=== PATIENT | female | born 1995 | race Asian ===

== ENCOUNTER 2018-01-16 14:25 | Emergency (ER) | payer OTHER ==
[2018-01-16 14:36] VITALS: RESP 16; O2SAT 97
--- NOTE | 2018-01-16 15:02 | EDPHY ---
H & P Stated Complaint: increasing cameron over last month has appt with neurology for next sunday Time Seen by Provider: 01/16/18 15:02 HPI/ROS: HPI: This is a 22-year-old female who presents with Chief Complaint: increasing cameron over last month has appt with neurology for next sunday Location: frontal Quality:pressure like pain Duration: Daily Signs and Symptoms: no fever, no nausea, no vomiting, no photophobia, no noise sensitivity, no neck stiffness, no ear pain, no tinnitus, + nasal congestion, + sinus pressure, no weakness, no radiation Timing: Daily Severity: Moderate Context: Patient is a local student who presents with complaints of frontal and maxillary pressure-like headache that occurs every several days over the last month. She reports that she believes that she has allergies due to having a runny nose, sinus pressure. She denies any visual changes/fever/neck stiffness. She was seen at [facility] yesterday and given Augmentin and Nasacort she has not started this yet. Denies any balance deficits. Modifying Factors: None Comment: ROS: see HPI Constitutional: No fever, no chills, no weight loss Eyes: No blurred vision Respiratory: No shortness of breath, no cough Cardiovascular: No chest pain, no palpitations Gastrointestinal: No nausea, no vomiting, no diarrhea, no hematemesis, no blood in stool Genitourinary: No dysuria, no blood in urine Extremities: No myalgias, no edema Neurologic: No weakness, no numbness Skin: No rashes, no petechiae Hematologic: No bruising, no bleeding MEDICAL/SURGICAL/SOCIAL HISTORY: Medical history: Generally healthy. Does not take any regular medications. Surgical history: Denies Social history: Student CONSTITUTIONAL: Extremely well-appearing young adult female, awake and alert, no obvious distress HEENT: Atraumatic and normocephalic, PERRL, EOMI. Tympanic membranes clear. Oropharynx clear, no exudate and moist pink mucosa. Nares with boggy mucosa; frontal and maxillary sinus pressure. Airway patent. No lymphadenopathy. No meningismus. Cardiovascular: Normal S1/S2, regular rate, regular rhythm, without murmur rub or gallop. PULMONARY/CHEST: Symmetrical and nontender. Clear to auscultation bilaterally. Good air movement. No accessory muscle usage. ABDOMEN: Soft, nondistended, nontender, no rebound, no guarding, no peritoneal signs, no masses or organomegaly. No CVAT. EXTREMITIES: 2/2 pulses, strength 5/5, no deformities, no clubbing, no cyanosis or edema. NEUROLOGICAL: no focal neuro deficits. GCS 15. SKIN: Warm and dry, no erythema. no rash. Good capillary refill. Source: Patient Exam Limitations: No limitations - Personal History LMP (Females 10-55): Extended Cycle BCP/Inj Current Tetanus/Diphtheria Vaccine: No - Medical/Surgical History Hx Asthma: No Hx Chronic Respiratory Disease: No Hx Diabetes: No Hx Cardiac Disease: No Hx Renal Disease: No Hx Cirrhosis: No Hx Alcoholism: No Hx HIV/AIDS: No Hx Splenectomy or Spleen Trauma: No Other PMH: denies - Social History Smoking Status: Never smoked Constitutional: Initial Vital Signs Temperature (C) 37.2 C 01/16/18 14:33 Heart Rate 68 01/16/18 14:33 Respiratory Rate 16 01/16/18 14:33 Blood Pressure 114/82 H 01/16/18 14:33 O2 Sat (%) 97 01/16/18 14:33 O2 Delivery Mode Room Air Allergies/Adverse Reactions: No Known Allergies Allergy (Unverified 01/16/18 14:33) Home Medications: Medication Instructions Recorded P-EPHED HCL/FEXOFENADINE HCL 1 each PO BID #20 01/16/18 [SONIYA-D 12 HOUR TABLET] Medical Decision Making ED Course/Re-evaluation: IV fluids, meds given No neurological deficits. Discussed obtaining head CT imaging with patient she politely decline. Given 1 L normal saline, IV Toradol, IV Decadron, IV promethazine with complete relief of headache Suspect her headache is sinus related; advised to start her Augmentin Rhinocort. I have added some Soniya-D. This patient was seen under the supervision of my secondary supervising physician. I evaluated care for this patient independently. Differential Diagnosis: Headache including but not limited to subarachnoid hemorrhage, migraine headache , tension headache and infectious causes such as meningitis, pharyngitis and sinusitis. - Data Points Medications Given: Discontinued Medications Dexamethasone (Decadron Injection) 8 mg IVP EDNOW ONE Stop: 01/16/18 15:22 Last Admin: 01/16/18 15:38 Dose: 8 mg Sodium Chloride (Ns) 1,000 mls @ 3,000 mls/hr IV EDNOW ONE Stop: 01/16/18 15:40 Last Admin: 01/16/18 15:37 Dose: 1,000 mls Ketorolac Tromethamine (Toradol) 15 mg IVP/IM EDNOW ONE Stop: 01/16/18 15:22 Last Admin: 01/16/18 15:37 Dose: 15 mg Promethazine HCl (Phenergan) 12.5 mg IVP EDNOW ONE Stop: 01/16/18 15:22 Last Admin: 01/16/18 15:37 Dose: 12.5 mg Departure - Departure Disposition: Home, Routine, Self-Care Clinical Impression: Sinus headache Sinusitis Qualifiers: Sinusitis location: frontal Chronicity: acute Recurrence: non-recurrent Qualified Code(s): J01.10 - Acute frontal sinusitis, unspecified Condition: Good Instructions: Sinusitis (ED), Acute Headache (ED) Additional Instructions: Please complete course of Augmentin and use Rhinocort daily. Take Soniya-D twice a day until symptoms have improved. If symptoms do not improve in 1-2 weeks; it would benefit you to follow up with ENT. Return to the ER immediately if you have progressive headaches, neurologic deficits, gait abnormality, visual disturbance, slurred speech, or any other symptom that concerns you. Referrals: Dimas Robins MD [Medical Doctor] - As per Instructions Prescriptions: P-EPHED HCL/FEXOFENADINE HCL [SONIYA-D 12 HOUR TABLET] 1 each PO BID #20
[2018-01-16] MEDS ORDERED: NS 1,000 ML IV ONE (15:21)
[2018-01-16] MEDS ORDERED: DEXAMETHASONE 4 MG/ML VIAL IVP ONE (15:21)
[2018-01-16] MEDS ORDERED: PROMETHAZINE HCL 25 MG/ML INJ IVP ONE (15:21)
[2018-01-16] MEDS ORDERED: KETOROLAC 15 MG/1 ML SDV IVP/IM ONE (15:21)
[2018-01-16 17:57] VITALS: BP 94/74; PULSE 71; TEMP 98.6
== END 2018-01-16 17:57 | disposition home or self-care (01) ==
DX: J01.10 Acute frontal sinusitis, unspecified (principal)
CPT/HCPCS: 96374; J1100; J1885; J2550